=== PATIENT | female | born 1990 | race Caucasian/White ===

== ENCOUNTER 2017-08-25 19:05 | Emergency (ER) | payer OTHER ==
[~2017-08-25] VITALS: Ht 182.9 cm; Wt 61.2 kg
[2017-08-25 19:29] VITALS: BP 140/97
[2017-08-25] MEDS ORDERED: IBUPROFEN 600 MG TABLET PO ONE ×2 (20:00)
== END 2017-08-25 20:05 | disposition home or self-care (01) ==
LOC: ER 19:07
DX: S61.451A Open bite of right hand, initial encounter (principal); S61.452A Open bite of left hand, initial encounter; W54.0XXA Bitten by dog, initial encounter; Y93.89 Activity, other specified; Y92.89 Other specified places as the place of occurrence of the external cause; Y99.8 Other external cause status
CPT/HCPCS: 99283; A4606; A6402; Z7610